=== PATIENT | male | born 1965 | race Caucasian/White ===

== ENCOUNTER 2017-04-03 15:17 | Emergency (ER) | payer BC, MEDICAID ==
[~2017-04-03] VITALS: Ht 188 cm; Wt 99.8 kg
--- NOTE | 2017-04-03 16:08 | Emergency Room Report ---
History of Present Illness General Chief Complaint: Multiple Trauma/Fall Source: Patient Present Illness HPI 51-year-old male presents to the emergency department complaining of 10/10 in severity pain to the right side of his forehead, neck, lumbar spine which radiates into his posterior thighs in addition to the anterior means pain with bleeding. Patient status post fall from ladder about 8 feet. Patient states he was climbing up a ladder when the ladder slipped and he went falling forward. Patient states he tried to brace himself with his hands but he did hit his head. Patient reports taking aspirin daily in addition to taking 4 Advil prior to arrival. Patient denies nausea or vomiting. Does not know when his last tetanus vaccination was. Patient reports past medical history of high blood pressure and type 2 diabetes.Denies numbness tingling or loss of sensation or gross motor movements of the extremities, incontinence of bowel or bladder. Denies CP, Palpitations, LOC, AMS, dizziness, Changes in Vision, Sensation, paresthesias, or a sudden severe headache. Allergies: Coded Allergies: No Known Allergies (Unverified , 10/01/15) Patient History Past Medical History: see triage record Past Surgical History: none Pertinent Family History: none Reviewed Nursing Documentation: PMH: Agreed, PSxH: Agreed Nursing Documentation-PMH Past Medical History: No History, Except For Hx Hypertension: Yes Hx Diabetes: Yes Review of Systems All Other Systems: negative except mentioned in HPI Physical Exam Vital Signs Date Time Temp Pulse Resp B/P (MAP) Pulse Ox O2 Delivery O2 Flow Rate FiO2 04/03/17 15:32 98.2 54 16 189/115 99 Room Air Sp02 EP Interpretation: reviewed, normal General Appearance: no apparent distress, alert, GCS 15, non-toxic Head: normocephalic, other - superficial abrasion to the right eyebrow, no echymosis or swelling noted, mild ttp Eyes: bilateral eye normal inspection, bilateral eye PERRL, bilateral eye EOMI ENT: hearing grossly normal, normal pharynx, no angioedema, normal voice, TMs + canals normal - no hemotympanum, no hammer sign Neck: full range of motion, supple/symm/no masses, tender lateral, tender midline Respiratory: chest non-tender, lungs clear, normal breath sounds, speaking full sentences Cardiovascular #1: regular rate, rhythm, normal capillary refill Cardiovascular #2: 2+ radial (R), 2+ radial (L), 2+ dorsalis pedis (R), 2+ dorsalis pedis (L) Musculoskeletal: back normal, gait/station normal, normal range of motion, tender - lumbar midline and paraspinal ttp, no hip ttp, no knee or tib/fib ttp other than superficially about avulsion/abrasion, FROM of all joints Neurologic: alert, oriented x3, responsive, motor strength/tone normal, sensory intact, normal gait, speech normal Psychiatric: judgement/insight normal, memory normal, mood/affect normal Skin: normal color, no rash, warm/dry, well hydrated, laceration - avulsion laceration that is superficial, and does not extend through the entire dermis, 0.4cm wide, and 2cm in length to the right anterior means. Medical Decision Making PA Attestation Dr. Higuera is my supervising Physician whom patient management has been discussed with. Diagnostic Impression: Primary Impression: Multiple injuries due to trauma Additional Impressions: Multiple contusions Laceration ER Course 51-year-old male presents to the emergency department complaining of 10/10 in severity pain to the right side of his forehead, neck, lumbar spine which radiates into his posterior thighs in addition to the anterior means pain with bleeding. Patient status post fall from ladder about 8 feet. Patient states he was climbing up a ladder when the ladder slipped and he went falling forward. Patient states he tried to brace himself with his hands but he did hit his head. Patient reports taking aspirin daily in addition to taking 4 Advil prior to arrival. Patient denies nausea or vomiting. Does not know when his last tetanus vaccination was. Patient reports past medical history of high blood pressure and type 2 diabetes.Denies numbness tingling or loss of sensation or gross motor movements of the extremities, incontinence of bowel or bladder. Denies CP, Palpitations, LOC, AMS, dizziness, Changes in Vision, Sensation, paresthesias, or a sudden severe headache. Ddx considered but are not limited to Fracture, dislocation, contusion, Sprain/ Strain/Spasm, Spinal chord injury, cauda equina, abrasions, lacerations, cellulitis, head injury, subdural hematoma just to name a few. Vital signs: are WNL, pt. is afebrile H&PE are most consistent with musculoskeletal injury will perform imaging to r/ o fractures/dislocations. Pt. has superficial avulsion laceration-not appropriate for sutures. ORDERS: - Tylenol PO - CT HEAD NO CONTRAST: No evidence of acute fracture, hemorrhage, or intracranial process Per: Official Radiology report. CT C-SPINE NO CONTRAST: Negative for acute fractures : normal impression per official radiology report. - CT L-SPINE NO CONTRAST: negative for acute fractures, some degenerative changes per official radiology report. - please see official radiology report for further detail regarding degenerative changes. ED INTERVENTIONS: -Tetanus vaccine was administered as pt. vaccination status was unknown. - The wound was copiously irrigated with normal saline, and explored for foreign body for which no FB was found. - benzoin and steri-strips are applied. -sterile dressing is applied. Discussed with patient: That we make every effort to approximate the laceration as best as we can so that scarring will be as cosmetically pleasing as possible with our limited cosmetic skill set in the Emergency dept. Regardless of our best efforts there will be scarring after laceration repair. The extent of scarring is unknown at this time. -D/w pt. not to apply topical abx ointment until the steri-strips fall off on their own, keep wound clean and dry. DISCHARGE: At this time pt. is stable for d/c to home. Will provide printed patient care instructions, and any necessary prescriptions. Care plan and follow up instructions have been discussed with the patient prior to discharge. Last Vital Signs Date Time Temp Pulse Resp B/P (MAP) Pulse Ox O2 Delivery O2 Flow Rate FiO2 04/03/17 15:32 98.2 54 16 189/115 99 Room Air Disposition: HOME, SELF-CARE Condition: Stable Scripts Bacitracin/Polymyxin B Sulfate (BACITRACIN-POLYMYXIN OINTMENT) 28.35 Gm Oint...g. 1 APPLIC TP BID, #20.3 GM Prov: Natasha Garza P.A. 04/03/17 Cephalexin* (KEFLEX*) 500 Mg Capsule 500 MG ORAL EVERY 12 HOURS for 7 Days, #14 CAP 0 Refills Prov: Natasha Garza P.A. 04/03/17 Tramadol Hcl* (ULTRAM*) 50 Mg Tablet 50 MG ORAL Q6H Y for For Pain, #30 TAB 0 Refills Prov: Natasha Garza P.A. 04/03/17 Patient Instructions: Contusion, [id number], Head Injury, Adult, [id number] , Nonsutured Laceration Care Additional Instructions: Take medications as directed. Follow up with a Primary Care Provider in 3-5 days, even if your symptoms have resolved. --Please review list of primary care clinics, if you do not already have a primary care provider Return sooner to ED if new symptoms occur, or current symptoms become worse. Do not drink alcohol, drive, or operate heavy machinery while taking Tramadol as this may cause drowsiness. - Please note that this Emergency Department Report was dictated using [employer] cutter technology software, occasionally this can lead to erroneous entry secondary to interpretation by the dictation equipment. Natasha Garza Apr 03, 2017 16:08
[2017-04-03] MEDS ORDERED: Tetanus/Diptheria/Pertussis Vaccine 0.5ml Syr IM ONE (16:15)
[2017-04-03 16:54] VITALS: BP 167/104
--- NOTE | 2017-04-03 16:56 | Diagnostic Imaging Report ---
Indications: PAIN trauma status post fall from ladder Technique: Spiral acquisitions obtained through the lumbar spine. Multiplanar reconstructions were generated. No IV contrast utilized. Total dose length product 587 mGycm. CTDIvol(s) 17 mGy. Dose reduction achieved using automated exposure control Comparison: None Findings: Bony alignment is normal. Vertebral body heights are preserved. The disc spaces are preserved. No acute fractures. No dislocations. At L23, there is circumferential annular bulge. This, in combination with facet hypertrophy and ligamentum flavum hypertrophy results in mild AP and transverse narrowing of the spinal canal. There is mild compromise of the neural foramina bilaterally. There is bilateral facet degeneration. At L3-4, there is circumferential annular bulge. This, in combination with facet and ligamentum flavum hypertrophy results in mild to moderate narrowing of the spinal canal. No significant neural foraminal compromise is demonstrated. There are fairly extensive degenerative changes of the facets bilaterally. At L4-5, there is circumferential annular bulge. This, in combination with facet hypertrophy results in mild narrowing of the spinal canal. There is mild compromise of the bilateral neural foramina. There is significant facet degeneration. At L5-S1, no significant disc bulge or protrusion. Facet hypertrophy results in mild narrowing of the neural foramina bilaterally. No significant spinal stenosis. The included extraspinal soft tissues are remarkable for the presence of colonic diverticulosis Impression: No acute bony trauma Degenerative changes as detailed on a level by level basis above Incidental finding of colonic diverticulosis The CT scanner at [facility] is accredited by the [employer] and the scans are performed using protocols designed to limit radiation exposure to as low as reasonably achievable to attain images of sufficient resolution adequate for diagnostic evaluation.
--- NOTE | 2017-04-03 17:06 | Diagnostic Imaging Report ---
Indication: Trauma, pain, status post fall from ladder Technique: Spiral acquisitions obtained through the cervical spine. No IV contrast utilized. Multiplanar reconstructions were generated. Total dose length product 400 mGycm. CTDIvol(s) 19 mGy. Dose reduction achieved using automated exposure control Comparison: None Findings: No acute fractures. No dislocations. There are large anterior osteophytes present. There is degenerative disc narrowing at multiple levels. No prevertebral soft tissue swelling. There is degenerative narrowing of the anterior axial joint. There is minimal degenerative disc narrowing at C2-3. There are anterior and posterior osteophytes. There is circumferential annular bulge which, in combination with the osteophytes, results in borderline narrowing of the spinal canal. There is mild narrowing of the right neural foramen due to facet degeneration. There is also mild facet degeneration on the left. At C3-4, there is mild degenerative disc narrowing. There are is circumferential annular bulge. There are large posterior osteophytes. On the left, these likely significantly impinge upon the lateral recess as well as on the left side of the cord. There is severe left neural foraminal stenosis due to the posterior osteophyte as well as due to marked left-sided facet degeneration. There are large anterior osteophytes as well. At C4-5, the disc space is preserved. There is mild circumferential annular bulge, which results in borderline narrowing of the spinal canal. There is mild narrowing of the right neural foramen. There is bilateral facet hypertrophy. There are large ventral osteophytes At C5-6, there is moderate degenerative disc narrowing. There are large posterior osteophytes which results in moderate narrowing of the spinal canal and impinge upon the lateral recesses bilaterally. There is moderate right and severe left neural foraminal stenosis. This is due to bilateral facet degeneration as well as due to the posterior osteophytes. Large anterior osteophytes are contiguous with the anterior vertebral body. At C6-7, there is moderate to severe degenerative disc narrowing. Large osteophytes result in moderate to severe narrowing of the spinal canal, which is narrowed to 5 mm minimum AP diameter with likely significant impingement upon the cord. A more focal posterior osteophyte to the right of midline likely impinges upon the right side of the spinal cord. There is severe bilateral neural foraminal stenosis, due to a combination of bilateral facet degeneration in the posterior osteophytes. There are large anterior osteophytes as well At C7-T1, there is moderate degenerative disc narrowing. No significant disc bulge or protrusion or spinal stenosis. Bilateral facet degeneration results in mild narrowing of the bilateral neural foramina. There are large anterior osteophytes. The included extraspinal soft tissues are significant for the presence of right-sided maxillary sinus disease Impression: No acute bony trauma Extensive cervical degenerative change with multiple levels of spinal and neural foraminal stenosis, as detailed on a level by level basis above The CT scanner at [facility] is accredited by the [employer] and the scans are performed using protocols designed to limit radiation exposure to as low as reasonably achievable to attain images of sufficient resolution adequate for diagnostic evaluation.
--- NOTE | 2017-04-03 17:09 | Diagnostic Imaging Report ---
Indications: Trauma, status post fall from ladder Technique: Spiral acquisitions obtained through the brain. Angled axial and coronal 5 x 5 mm slices were reconstructed. Total dose length product 1372 mGycm. CTDI vol(s) 70 mGy. 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 No definite acute intracranial hemorrhage or edema, mass effect, or midline shift. Normal yoon-white differentiation. Normal size ventricles and extra axial CSF spaces. Intact calvarium. Visualized orbits are unremarkable. There is bilateral ethmoid and maxillary sinus disease. Impression: Negative for acute intracranial bleed or mass effect. Evidence of prior endovascular treatment of intracranial aneurysm The CT scanner at [facility] is accredited by the [employer] and the scans are performed using protocols designed to limit radiation exposure to as low as reasonably achievable to attain images of sufficient resolution adequate for diagnostic evaluation.
[2017-04-03] MEDS ORDERED: CEPHALEXIN500 MG ORAL (17:54)
[2017-04-03] MEDS ORDERED: TRAMADOL HCL50 MG ORAL (17:54)
[2017-04-03] MEDS ORDERED: BACITRACIN-P28.35 GM TP (18:08)
[2017-04-03 18:16] VITALS: BP 157/98
== END 2017-04-03 18:19 | disposition home or self-care (01) ==
LOC: EMR 17:30
DX: T14.90XA Injury, unspecified, initial encounter (principal); T14.8XXA Other injury of unspecified body region, initial encounter; S81.811A Laceration without foreign body, right lower leg, initial encounter; W11.XXXA Fall on and from ladder, initial encounter; Y93.9 Activity, unspecified; Y99.9 Unspecified external cause status; R51 Headache; I10 Essential (primary) hypertension; E11.9 Type 2 diabetes mellitus without complications; Z23 Encounter for immunization
CPT/HCPCS: 70450; 72125; 72131; 90471; 90715; 99284

== ENCOUNTER 2017-05-21 16:32 | Emergency (ER) | payer MEDICAID ==
[~2017-05-21] VITALS: Ht 188 cm; Wt 100.2 kg
[~2017-05-21 16:32] MED LIST: BACITRACIN-P28.35 GM TP; CEPHALEXIN500 MG ORAL; TRAMADOL HCL50 MG ORAL
[2017-05-21 17:21] VITALS: BP 183/115
[2017-05-21] MEDS ORDERED: Ketorolac 30mg Inj IM ONE (17:30)
[2017-05-21] MEDS ORDERED: NAPROXEN500 M1 ORAL (17:34)
[2017-05-21] MEDS ORDERED: CEPHALEXIN500 MG ORAL (17:34)
[2017-05-21] MEDS ORDERED: ROBAXIN-750750 MG PO (17:34)
--- NOTE | 2017-05-21 17:35 | Emergency Room Report ---
History of Present Illness General Chief Complaint: Pain Source: Patient Present Illness HPI 51 y/o male c/o multiple complaints. Patient states that he has right sided back pain with sciatica x 3 days. States he was getting out from his chair when he felt a sharp pain in his right buttock with radiation to his right upper thigh. States pain is worse with movement and better with rest. Has hx of sciatica on the left side. Not taking medications for sxs. Denies any lower extremity weakness, incontinence, foot drop, saddle anesthesia, numbness, or paralysis. Patient also complains of right leg wound that is not healing. States he cut his right means 1 month ago and presented here and was told they were not able to suture it closed. Has since followed up with PCP. States he tried using OTC antibiotic ointment w/o improvement. Allergies: Coded Allergies: No Known Allergies (Unverified , 10/01/15) Patient History Past Medical History: see triage record Past Surgical History: none Pertinent Family History: none Immunizations: UTD Reviewed Nursing Documentation: PMH: Agreed, PSxH: Agreed Nursing Documentation-PMH Past Medical History: No History, Except For Hx Hypertension: Yes Hx Diabetes: Yes Review of Systems All Other Systems: negative except mentioned in HPI Physical Exam Vital Signs Date Time Temp Pulse Resp B/P (MAP) Pulse Ox O2 Delivery O2 Flow Rate FiO2 05/21/17 16:47 98.1 54 18 183/115 96 Room Air Sp02 EP Interpretation: reviewed, normal General Appearance: no apparent distress, alert, GCS 15, non-toxic Head: normocephalic, atraumatic Eyes: bilateral eye normal inspection, bilateral eye PERRL ENT: hearing grossly normal, normal pharynx, no angioedema, normal voice Neck: full range of motion, supple/symm/no masses Respiratory: chest non-tender, lungs clear, normal breath sounds, speaking full sentences Cardiovascular #1: regular rate, rhythm, no edema Musculoskeletal: back normal, gait/station normal, normal range of motion, non- tender, no calf tenderness, tender - right buttock region. Able to reproduce pain with piriformis muscle stretch Neurologic: alert, oriented x3, responsive, motor strength/tone normal, sensory intact, speech normal Psychiatric: judgement/insight normal, memory normal, mood/affect normal, no suicidal/homicidal ideation Skin: normal color, warm/dry, well hydrated, laceration - 4cm laceration to right means with local erythema and induration Lymphatic: no adenopathy Medical Decision Making PA Attestation Dr. Cano is my supervising physician with whom patient management has been discussed with. Diagnostic Impression: Primary Impression: Piriformis syndrome of right side Additional Impression: Traumatic open wound of right lower leg with infection Qualified Codes: S81.801A - Unspecified open wound, right lower leg, initial encounter; L08.9 - Local infection of the skin and subcutaneous tissue, unspecified ER Course Pt. presents to the ED c/o infected leg wound and back pain Ddx considered but are not limited to laceration, fracture, contusion, abrasion , foreign body, cellulitis, abscess, spinal stenosis, DVT, muscle strain, fracture, contusion Vital signs: are WNL, pt. is afebrile H&PE are most consistent with infected laceration of right means with piriformis muscle syndrome ORDERS: None, diagnosis is clinical ED INTERVENTIONS: Toradol 30mg DISCHARGE: At this time pt. is stable for d/c to home. Will provide printed patient care instructions, and any necessary prescriptions. Care plan and follow up instructions have been discussed with the patient prior to discharge. Last Vital Signs Date Time Temp Pulse Resp B/P (MAP) Pulse Ox O2 Delivery O2 Flow Rate FiO2 05/21/17 17:21 98.1 18 183/115 96 Room Air 05/21/17 16:47 54 Status: unchanged Disposition: HOME, SELF-CARE Condition: Stable Scripts Methocarbamol* (ROBAXIN-750*) 750 Mg Tablet 750 MG PO TID, #30 TAB 0 Refills Prov: SABRY,TAMEEM P.A. 05/21/17 Cephalexin* (KEFLEX*) 500 Mg Capsule 500 MG ORAL EVERY 12 HOURS, #20 CAP 0 Refills Prov: SABRY,TAMEEM P.A. 05/21/17 Naproxen* (NAPROXEN*) 500 Mg Tablet.dr 500 MG ORAL TWICE A DAY for 10 Days, #20 TAB Prov: SABRY,TAMEEM P.A. 05/21/17 Additional Instructions: Keep wound clean and dry. Follow up with PCP within next 2-4 days. Avoid sun exposure to minimize scarring. Patient advised that they can take a shower or bath, but be sure to pat the area dry with a towel afterward. Patient should come back sooner if they experience any red areas that get bigger, more swollen , have pus draining from wound, or if the site becomes more painful. Advised patient to take needed. Advised patient that muscle relaxers causes drowsiness and to not take it if they plan on leaving the house or operating heavy machinery. Patient education on Gloria method back exercises for radiculopathy and given hand out with stretches detailed. Advised patient to sleep with pillow behind leg if laying supine or between the knees if laying on their side. Advised patient to wear proper footwear with good insoles in addition to good ergonomics while at home and at work. Patient encouraged for weight loss through diet and exercise to help prevent recurrence of future back pain. Advised patient to go to the ER immediately if she experiences any new LE numbness, weakness, irretractible back pain, or if any paralysis, urinary, or bowel incontinence begins. BLAKE SANTIAGO May 21, 2017 17:35
[2017-05-21 18:00] LABS: ANION GAP 8 mmol/L (5-15); CARBON DIOXIDE 30 MMOL/L (21-32); CHLORIDE 102 MMOL/L (98-107); CREATININE 1.2 MG/DL (0.55-1.30); GLOMERULAR FILTRATION RATE > 60 mL/min (>60); POTASSIUM 3.6 MMOL/L (3.5-5.1); SODIUM 140 MMOL/L (136-145)
[2017-05-21 18:04] LABS: ALANINE AMINOTRANSFERASE 15 U/L (12-78); ALBUMIN/GLOBULIN RATIO 1.1 (1.0-2.7); ASPARTATE AMINO TRANSFERASE 19 U/L (15-37); TOTAL PROTEIN 7.9 G/DL (6.4-8.2)
[2017-05-21 18:07] VITALS: BP 183/115
[2017-05-21 18:07] LABS: ACETAMINOPHEN < 2 MCG/ML (10-30); ALCOHOL < 3 mg/dL; BASOPHILS % (AUTO) 1.1 % (0.0-2.0); EOSINOPHILS % (AUTO) 2.8 % (0.0-3.0); LYMPHOCYTES % (AUTO) 38.8 % (20.0-45.0); MEAN CORPUSCULAR HEMOGLOBIN 32.2 PG (27.0-31.0); MEAN CORPUSCULAR HGB CONC 33.5 G/DL (32.0-36.0); MEAN CORPUSCULAR VOLUME 96 FL (80-99); MEAN PLATELET VOLUME 7.8 FL (6.5-10.1); MONOCYTES % (AUTO) 7.4 % (1.0-10.0); NEUTROPHILS % (AUTO) 49.9 % (45.0-75.0); PLATELET COUNT 290 K/UL (150-450); RED BLOOD COUNT 5.54 M/UL (4.70-6.10)
== END 2017-05-21 22:00 | disposition home or self-care (01) ==
LOC: EMR 21:52
DX: G57.01 Lesion of sciatic nerve, right lower limb (principal); S81.801A Unspecified open wound, right lower leg, initial encounter; X58.XXXA Exposure to other specified factors, initial encounter; Y92.89 Other specified places as the place of occurrence of the external cause; L08.9 Local infection of the skin and subcutaneous tissue, unspecified; E11.9 Type 2 diabetes mellitus without complications; I10 Essential (primary) hypertension
CPT/HCPCS: 36415; 80053; 80329; 85025; 99284; J1885

== ENCOUNTER 2018-01-13 16:49 | Emergency (ER) | payer MEDICAID ==
[~2018-01-13] VITALS: Ht 188 cm; Wt 95.3 kg
[~2018-01-13 16:49] MED LIST changes: +NAPROXEN500 M1 ORAL; +ROBAXIN-750750 MG PO
[2018-01-13] MEDS ORDERED: UNOBMED (16:59)
[2018-01-13 17:05] VITALS: BP 193/113
[2018-01-13] MEDS ORDERED: BACTROBAN CR1 APPLIC TOPIC (17:36)
--- NOTE | 2018-01-13 17:36 | Emergency Room Report ---
History of Present Illness General Chief Complaint: Skin Rash/Abscess Source: Patient Present Illness HPI 52-year-old male patient presents to ER complaining of skin irritation on bilateral elbows for the past 24 hours. Reports that he used a chemical callus remover at home and began to burn immediately. denies burning sensation at this time, reports pain. States He washed his arms thoroughly after initially putting on medication and burning sensation. Reports that his wounds began to callus over since that time. Reports no other acute symptoms at this time. Denies fever, chest pain or shortness of breath. Denies headache, nausea, vomiting. Also would like to discuss his elevated blood pressure. States that he took his blood pressure medication today. Denies other symptoms. Allergies: Coded Allergies: No Known Allergies (Unverified , 10/01/15) Patient History Past Medical History: see triage record Reviewed Nursing Documentation: PMH: Agreed; PSxH: Agreed Nursing Documentation-PMH Hx Hypertension: Yes Hx Diabetes: Yes Review of Systems All Other Systems: negative except mentioned in HPI Physical Exam Vital Signs Date Time Temp Pulse Resp B/P (MAP) Pulse Ox O2 Delivery O2 Flow Rate FiO2 01/13/18 16:55 98.3 66 18 193/113 93 Room Air 98.2 Sp02 EP Interpretation: reviewed, normal General Appearance: well appearing, no apparent distress, alert, GCS 15, non- toxic Head: normocephalic, atraumatic ENT: hearing grossly normal, normal pharynx, no angioedema, normal voice, uvula midline, moist mucus membranes Neck: full range of motion Respiratory: lungs clear, normal breath sounds, no rhonchi, no respiratory distress, no accessory muscle use, no wheezing, speaking full sentences Cardiovascular #1: regular rate, rhythm, no edema Gastrointestinal: non tender, soft, no mass, non-distended, no guarding, no rebound Genitourinary: no CVA tenderness Musculoskeletal: back normal, digits/nails normal, gait/station normal, normal range of motion, non-tender Neurologic: alert, oriented x3, responsive, motor strength/tone normal, sensory intact Psychiatric: mood/affect normal Skin: other - bilateral elbows: Scabbing present, no active bleeding, mild erythema noted, no surrounding erythema or edema, no drainage, no pus Medical Decision Making PA Attestation Dr. Welch is my supervising Physician whom patient management has been discussed with. Diagnostic Impression: Primary Impression: Hypertension Additional Impression: Skin irritation due to topical agent ER Course Pt. presents to the ED c/o rash. Ddx considered but are not limited to atopic dermatitis, scabies, shingles, hives, urticaria, angiodema, allergic reaction, impetigo. Vital signs: are WNL, pt. is afebrile Blood pressure elevated at this time, will continue to monitor.patient reports that he took his blood pressure medications today. lungs clear to auscultation, no wheezes rhonchi or rales. Denies chest pain, shortness of breath, vision changes, abdominal pain, does not require acute intervention at ER at this time. Follow with primary care provider discuss further treatment and referral. Advised on low-sodium diet, advised on diet and exercise. patient does not require workup at this time. ER COURSE Physical exam shows localized skin irritation and scabbing secondary to topical callus remover. No active bleeding or drainage. Will provide patient with topical antibiotic. Do not pick or scratch at scabs. Follow-up with primary care provider. discuss referral to dermatology or wound care as needed. DISCHARGE: -Rx given for Bactroban At this time pt. is stable for d/c to home. Patient resting comfortably, in no acute distress, nontoxic appearing, smiling and laughing and talking on his phone. Will provide printed patient care instructions, and any necessary prescriptions. Care plan and follow up instructions have been discussed with the patient prior to discharge. Patient provided with list of healthcare clinics to establish primary care physician. Patient instructed to follow-up with primary care provider in 3 - 5 days. Patient questions asked and answered. ER precautions given. Patient instructed to return to ER immediately for any new or worsening of symptoms including but not limited to increasing SOB, persistent fever. - Please note that this Emergency Department Report was dictated using [employer] residential manager technology software, occasionally this can lead to erroneous entry secondary to interpretation by the dictation equipment. Last Vital Signs Date Time Temp Pulse Resp B/P (MAP) Pulse Ox O2 Delivery O2 Flow Rate FiO2 01/13/18 17:05 98.2 79 18 193/113 93 Room Air 98.2 Disposition: HOME, SELF-CARE Condition: Stable Scripts Mupirocin Calcium (Bactroban) 15 Gm Cream..g. 1 APPLIC TOPIC THREE TIMES A DAY, #15 GM Prov: oDm Moya 01/13/18 Patient Instructions: Chemical Burn, [id number], DASH Eating Plan, Hypertension, Managing Your High Blood Pressure Additional Instructions: Followup with primary care provider in 3 -5 days. Take medications as directed. Patient questions asked and answered. ER precautions given, patient instructed to return to ER immediately for any new or worsening of symptoms. Advised patient low-salt diet. Continue to take HTN medications as instructed. Follow with primary care provider discuss hypertension medications. Wear compression stockings. Dom Moya Jan 13, 2018 17:36
[2018-01-13] MEDS ORDERED: Ketorolac 30mg Inj IM ONE (17:45)
[2018-01-13 18:28] VITALS: BP 174/89
[2018-01-13 18:29] VITALS: BP 193/113
== END 2018-01-13 18:29 | disposition home or self-care (01) ==
LOC: EMR 17:29
DX: L98.9 Disorder of the skin and subcutaneous tissue, unspecified (principal); T50.995A Adverse effect of other drugs, medicaments and biological substances, initial encounter; Y92.9 Unspecified place or not applicable; E11.9 Type 2 diabetes mellitus without complications; I10 Essential (primary) hypertension
CPT/HCPCS: 96372; 99283; J1885